=== PATIENT | male | born 1935 ===

== ENCOUNTER 2019-08-09 11:23 | Emergency (ER) | payer OTHER ==
[~2019-08-09] VITALS: Ht 180.3 cm; Wt 108.9 kg
[2019-08-09] MEDS ORDERED: CARVEDILOL6.25 MG (11:44)
[2019-08-09] MEDS ORDERED: ADVAIR 100-501 EACH (11:44)
[2019-08-09] MEDS ORDERED: MEDROLPACK PO (15:19)
[2019-08-09] MEDS ORDERED: TUSSI PRES-B L480 ML PO (15:19)
[2019-08-09] MEDS ORDERED: ZITHROMAX200 MG PO (15:19)
[2019-08-09] MEDS ORDERED: TESSALON PERLE100 MG PO (15:19)
== END 2019-08-09 15:17 | disposition home or self-care (01) ==
LOC: ER 11:23
DX: J06.9 Acute upper respiratory infection, unspecified (principal); M19.042 Primary osteoarthritis, left hand